=== PATIENT | female | born 1955 | race Caucasian/White ===

== ENCOUNTER 2017-07-01 17:00 | Emergency (ER) | payer OTHER ==
[~2017-07-01] VITALS: Ht 170.2 cm; Wt 136.1 kg
[~2017-07-01 17:00] MED LIST: ANTIVERT25 MG PO; ASPIR 8181 M1 PO; BENTYL 20 MG TA20 M1 PO; CIPRO500 MG PO; FLAGYL500 MG PO; HYDROCODONE-AP1 EAC6 PO; IMITREX 25 MG T25 M1 PO; LISINOPRIL20 MG PO; METFORMIN HCL500 MG PO; METHOTREXATE 22.5 MG PO; NAPROSYN500 MG PO; NORCO 5-325 TA1 EACH PO; PAXIL PO; PAXIL10 MG PO; PHENAZOPYRIDIN200 M2 PO; PRAVACHOL40 MG PO; ROBAXIN 750 MG750 M1 PO; ROBAXIN500 MG PO; SINGULAIR 10 MG10 M1 PO; TYLENOL325 MG PO; VIBERZI75 MG PO; VITAMIN B-12500 MCG PO; ZOFRAN ODT4 MG DISSOLVE; ZOFRAN ODT4 MG PO
[2017-07-01] MEDS ORDERED: GLUCOPHAGE XR500 M1 PO (17:15)
[2017-07-01] MEDS ORDERED: NAPROSYN500 MG PO (17:40)
[2017-07-01] MEDS ORDERED: NORCO 5-325 TA1 EAC1 PO (17:40)
[2017-07-01 17:49] VITALS: BP 182/85
== END 2017-07-01 17:50 | disposition home or self-care (01) ==
LOC: M.ERS 17:00
DX: M54.16 Radiculopathy, lumbar region (principal); I10 Essential (primary) hypertension; E11.9 Type 2 diabetes mellitus without complications; F32.9 Major depressive disorder, single episode, unspecified; E78.00 Pure hypercholesterolemia, unspecified; Z90.711 Acquired absence of uterus with remaining cervical stump; Z98.890 Other specified postprocedural states; Z88.5 Allergy status to narcotic agent

== ENCOUNTER → 2017-07-20 | Outpatient (CLI) | payer OTHER ==
[~2017-07-20] MED LIST changes: +GLUCOPHAGE XR500 M1 PO; +NORCO 5-325 TA1 EAC1 PO
== END ==
LOC: M.MRI 06-28 12:23
DX: S39.92XA Unspecified injury of lower back, initial encounter (principal); M47.897 Other spondylosis, lumbosacral region; X58.XXXA Exposure to other specified factors, initial encounter; Y93.89 Activity, other specified; Y92.89 Other specified places as the place of occurrence of the external cause; Y99.8 Other external cause status

== ENCOUNTER → 2018-09-19 | Outpatient (CLI) | payer OTHER | LOC: M.ULTRA 09-12 08:13 → M.MRI 14:59 → M.ULTRA 16:00 | DX: I65.23 Occlusion and stenosis of bilateral carotid arteries (principal); G51.0 Bell's palsy; E78.5 Hyperlipidemia, unspecified; I10 Essential (primary) hypertension; E66.8 Other obesity; Z88.0 Allergy status to penicillin; Z68.41 Body mass index [BMI] 40.0-44.9, adult; Z79.899 Other long term (current) drug therapy ==

== ENCOUNTER 2018-12-25 11:18 | Emergency (ER) | payer OTHER ==
[~2018-12-25] VITALS: Ht 165.1 cm; Wt 126.5 kg
[~2018-12-25 11:18] MED LIST changes: +ASPIRIN81 M2 PO; +NORVASC5 MG PO; +VITAMIN D2000 UNIT PO
[2018-12-25 11:42] LABS: ABSOLUTE BASOPHILS 0.1 thou/uL (0.0-0.2); ABSOLUTE EOSINOPHILS 0.2 thou/uL (0.0-0.7); ABSOLUTE LYMPHOCYTES 2.2 thou/uL (0.8-5.3); ABSOLUTE MONOCYTES 0.6 thou/uL (0.0-1.2); BASOPHILS 0.7 %; HEMATOCRIT 42.4 % (37.0-47.0); LYMPHOCYTES 27.2 %; MCH 29.2 pg (26.0-34.0); MCHC 33.1 g/dL (28.0-37.0); MCV 88.5 fL (80.0-100.0); MONOCYTES 7.8 %; MPV 8.3 fl. (7.2-11.1); NUCLEATED RBCS 0 /100WBC; PLATELET COUNT* 252 thou/uL (150-400); POLYS 61.3 %; RDW-CV 12.9 % (10.5-14.5); WBC 8.1 thou/uL (4.0-11.0)
[2018-12-25 11:47] LABS: ANION GAP 8 mmol/L (7-16); BUN 25 mg/dL (7-18); CALCIUM 9.5 mg/dL (8.5-10.1); CHLORIDE 103 mmol/L (98-107); CO2 29 mmol/L (21-32); CREATININE 1.6 mg/dL (0.6-1.3); GLUCOSE 114 mg/dL (70-99); POTASSIUM 4.3 mmol/L (3.5-5.1); SODIUM 140 mmol/L (136-145)
[2018-12-25 12:01] LABS: ALBUMIN 3.9 g/dL (3.4-5.0); ALKALINE PHOSPHATASE 104 U/L (46-116); SGOT 10 U/L (15-37); SGPT 20 U/L (30-65); TOTAL BILIRUBIN 0.3 mg/dL (<0.1-1.0); TOTAL PROTEIN 7.7 g/dL (6.4-8.2); TROPONIN-I LEVEL <0.06 ng/mL (<0.06)
[2018-12-25 12:10] LABS: URINE BILIRUBIN NEGATIVE (Negative); URINE BLOOD NEGATIVE (Negative); URINE CLARITY CLEAR; URINE COLOR YELLOW; URINE GLUCOSE-RANDOM NEGATIVE (Negative); URINE KETONES NEGATIVE (Negative); URINE LEUKOCYTES-REFLEX NEGATIVE (Negative); URINE NITRITE-REFLEX NEGATIVE (Negative); URINE PROTEIN NEGATIVE (Negative); URINE UROBILINOGEN 0.2 E.U./dl (0.2-1.0)
[2018-12-25 12:51] VITALS: BP 137/75
--- NOTE | 2018-12-25 15:50 | EKG ---
[place] [address] ELECTROCARDIOGRAM REPORT Name: AWAIS LEEMADINA CAROLINEMAXIMUS [facility] [id number] Admission: 12/25/18 Attend Phys: Discharge: 12/25/18 Date of : 55 Report #: [id number] THIS REPORT FOR: //name// [facility] ED Test Date: 2018-12-25 Test Time: 11:38:21 Pat Name: SYLVIE LEE Department: Room: Gender: F [employer]: : 1955 Requested By: Neptali Sanders Order Number: [id number] MD: Escobar Pierson Measurements Intervals [place] Rate: 78 P: 27 IA: 135 QRS: 10 QRSD: 74 T: 17 QT: 337 QTc: 384 Interpretive Statements Sinus rhythm Low voltage, precordial leads Compared to ECG 01/19/2017 07:45:57 No significant changes Electronically Signed On 12-25-2018 15:50:39 CDT by Escobar Pierson [email or web address] <ELECTRONICALLY SIGNED> By: Escobar Pierson MD, [facility] 12/25/18 [id number] [id number] 37 Escobar Pierson MD, FACC /EPI
== END 2018-12-25 12:51 | disposition home or self-care (01) ==
LOC: M.ERS 11:18
PROVIDERS: Emergency Medicine Emergency Medical Services
DX: R55 Syncope and collapse (principal); I10 Essential (primary) hypertension; E11.9 Type 2 diabetes mellitus without complications; M54.5 Low back pain; G89.29 Other chronic pain; G47.00 Insomnia, unspecified; G47.30 Sleep apnea, unspecified; E78.00 Pure hypercholesterolemia, unspecified; F32.9 Major depressive disorder, single episode, unspecified; Z90.711 Acquired absence of uterus with remaining cervical stump; Z90.49 Acquired absence of other specified parts of digestive tract; Z88.0 Allergy status to penicillin; Z88.6 Allergy status to analgesic agent

== ENCOUNTER → 2019-03-30 | Outpatient (CLI) | payer OTHER | LOC: M.ULTRA 11:26 | DX: E11.22 Type 2 diabetes mellitus with diabetic chronic kidney disease (principal); I12.9 Hypertensive chronic kidney disease with stage 1 through stage 4 chronic kidney disease, or unspecified chronic kidney disease; N18.3 Chronic kidney disease, stage 3 (moderate); E78.00 Pure hypercholesterolemia, unspecified ==